=== PATIENT | male | born 1975 | race Caucasian/White ===

== ENCOUNTER 2016-09-03 07:28 | Day surgery (SDC) | payer BC ==
[2016-09-03] MEDS ORDERED: PROPOFOL 10 MG/ML VIAL IV ONE (15:43)
[2016-09-03] MEDS ORDERED: FENTANYL PF 100MCG/2ML VIAL IV ONE (15:43)
[2016-09-03] MEDS ORDERED: MIDAZOLAM HCL 2MG/2ML VIAL IV ONE (15:43)
[2016-09-03] MEDS ORDERED: LIDOCAINE 2% MDV (20MG/ML) 20ML VIAL IV ONE (15:43)
--- NOTE | 2016-09-05 06:40 | Operative Note ---
DATE OF SURGERY: OPERATION: ESOPHAGOGASTRODUODENOSCOPY with biopsy. PREOPERATIVE DIAGNOSIS: Esophageal ulcer followup. POSTOPERATIVE DIAGNOSES: 1. Healed esophageal ulcers. 2. Gastritis. PROCEDURE: After informed consent was obtained from the patient, he was placed in the left lateral decubitus position in the endoscopy suite, sedated and monitored by the department of anesthesia. Once sedated, a well-lubricated UDE203 gastroscope was placed in the posterior oropharynx and under direct visualization passed to the proximal esophagus. The endoscope was advanced through the proximal, mid, and distal esophagus. The ulcers that were previously visualized have subsequently healed. There is no underlying Hull's apparent. The GE junction is unremarkable. The gastric body, antrum, pylorus, duodenal bulb, and sweep were inspected. There were noted to be changes consistent with gastritis but no other abnormalities noted in the gastric body or antrum. The pylorus and the duodenal bulb and sweep were normal. J-turn views of the proximal stomach were unremarkable. The endoscope was straightened and gastric biopsies obtained. The endoscope was then retracted through the proximal stomach and esophagus with no new findings noted. RECOMMENDATIONS: I suggest the patient continue his current medical program. I recommend a repeat exam as needed. In addition, he should stop smoking. As always, thank you for allowing me to participate in the healthcare of your patients. Parveen Smyth DO CC: Dr. Parveen GARCIA
== END 2016-09-03 08:50 | disposition home or self-care (01) ==
LOC: HOP 07:28
PROVIDERS: ATTEND Internal Medicine Gastroenterology
DX: Z87.11 Personal history of peptic ulcer disease (principal); K29.70 Gastritis, unspecified, without bleeding
CPT/HCPCS: 43239; 00740; J3010